=== PATIENT | female | born 1980 | race Caucasian/White ===

== ENCOUNTER 2017-03-09 23:08 | Observation (INO) | payer OTHER ==
[~2017-03-09] VITALS: Ht 177.8 cm; Wt 59.4 kg
--- NOTE | 2017-03-09 23:13 | ED.REPORT ---
HPI-General Illness Date of Service Mar 09, 2017 ED Provider: Dr. Velasco Pt is an otherwise healthy 36 year old who presents to the ED via EMS c/o near- syncope onset this evening. For the past 3 days she has been experiencing intermittent burning left upper chest pain with tingling sensation of the LUE lasting about 15 minutes at a time. This evening she felt very lightheaded and experienced near-syncope prompting a call to medics who found her to be hypotensive with systolic BP in 80s, improving on route. She c/o associated mild SOB, intermittent rapid heart palpitations, mild periumbilical abdominal pain which began this evening, nausea, and mild diarrhea. Pt denies cough, fever , chills, constipation, vomiting, decreased PO intake, or any other symptoms at this time. She rates her chest pain at a 7/10 at its worst. She denies smoking or drinking. Pt also denies asthma or any recent trips or illnesses. She has a family history of bradycardia requiring pacemaker insertion in her father. Her heart rate is normally in the upper 40s. Nursing Notes Stated Complaint: CHEST PAIN Nursing Notes Reviewed: Yes Allergies: Coded Allergies: No Known Allergies (Unverified , 03/09/17) Scheduled Levothyroxine (Synthroid) 50 Mcg Tablet 50 MCG PO DAILY General Time Seen by MD: 23:12 Chief Complaint Other (near syncope) Hx Obtained From: Patient, EMS Arrived By: Ambulance Sudden in Onset?: No Onset Occurred: 1 - 4 hours ago Symptom Duration: Since onset Location: : Chest Quality: Burning Radiation: : Arm left Severity: Current: Mild Severity: Maximum: Moderate Recent Healthcare: No recent doctor visit, No recent hospitalization Similar Sx Previous: No Past Medical History Past Medical History Chronic sinus bradycardia rate upper 40s Hypothyroid Past Surgical History None reported Family History Pt reported a family history of bradycardia Pt reported her father has a pacemaker Smoking History Never Smoker Social History Alcohol Use: Denies alcohol use Ambulatory Status Independent Review of Systems Full Review of Systems Constitutional: Denies: Fever Respiratory: Reports: Shortness of breath, Denies: Non-productive cough Cardiovascular: Reports: Chest pain GI: Reports: Abdominal pain, Diarrhea, Nausea, Denies: Vomiting Neurologic: Reports: Lightheaded, Syncope (near) Complete sys rev & neg: except as marked. Physical Exam Vital Signs Vital Signs Date Time Temp Pulse Resp B/P Pulse Ox O2 Delivery O2 Flow Rate FiO2 8/11/17 23:26 36.5 39 16 106/66 100 Room Air Initial VS: Reviewed, Vital signs abnormal Head / Eyes: Atraumatic, Normocephalic ENT: Mucous membranes moist, Conjunctiva normal Neck: Supple, Full range of motion Abdomen / GI: Soft, Non-tender, No distention Extremities: Vascular intact, Neuro intact Skin: Warm, Dry, No cyanosis Neurologic: Alert, Oriented, Nonfocal Psychiatric: Mood/affect normal, Behavior normal, Normal thought content General/Constitutional: Awake, Alert, No acute distress, Cooperative, Not toxic appearing Respiratory / Chest: Breath sounds NL, Breath sounds = bilat, No respiratory distress Cardiovascular: Regular rhythm, Heart sounds NL, No murmurs, Pulses = bilaterally Heart Rate / Rhythm: Positive: Bradycardia Interpretation & Diagnostics Lab Results Interpretation Result Diagram: 03/09/17231903/09/172319 Test 03/09/17 23:20 03/10/17 00:10 White Blood Count 5.2th/mm3 (3.8-10.1) Red Blood Count 3.95mil/mm3 (3.90-5.20) Hemoglobin 12.3g/dL (12.0-15.6) Hematocrit 37.0% (35.0-46.0) Mean Corpuscular Volume 93.7fL (81-100) Mean Corpuscular Hemoglobin 31.1pg (27.0-35.0) Mean Corpuscular Hemoglobin Concent 33.2% (32.0-37.0) Red Cell Distribution Width 12.2% (12.3-15.4) Platelet Count 338bil/L (150-400) Neutrophils (%) (Auto) 36.3% (40-74) Lymphocytes (%) (Auto) 40.1% (14-46) Monocytes (%) (Auto) 17.6% (4-12) Eosinophils (%) (Auto) 2.7% (0-5) Basophils (%) (Auto) 2.7% (0-3) Band Neutrophils % 1% (1-5) Sodium Level 135mEq/L (134-144) Potassium Level 4.1mEq/L (3.5-5.2) Chloride Level 97mEq/L (97-108) Carbon Dioxide Level 24mmol/L (18-29) Blood Urea Nitrogen 11mg/dL (6-20) Creatinine 0.45mg/dL (0.57-1.00) Estimat Glomerular Filtration Rate 228mL/min (>59) Glucose Level 96mg/dL (60-99) Calcium Level 9.3mg/dL (8.5-10.1) Total Bilirubin 0.2mg/dL (0.0-1.2) Aspartate Amino Transf (AST/SGOT) 25U/L (0-50) Alanine Aminotransferase (ALT/SGPT) 30U/L (0-32) Alkaline Phosphatase 81U/L (25-150) Total Protein 7.5g/dL (6.4-8.4) Albumin 4.6g/dL (3.4-5.0) Hold Purple Top Tube Received (Received) Hold Blue Top Tube Received (Received) Hold Red Top Tube Received (Received) Hold Tilden Top Tube Received (Received) Hold Brown Top Tube Received (Received) ECG Interpretation ECG Interpretation: Sinus bradycardia rate 42 Increased QT interval, QTC [address] segment or T wave changes Time: 00:03 Interpreted by: ED physician X-Ray Chest Interpretation Chest Xray Interpretation: No infiltrate No effusions View: Portable, 1 view Interpretation / Wet Read by: Wet read ED physician NL X-Ray Chest Findings: No infiltrate Re-Eval/Medical Decision Med Decision/Clinical Course This patient presents with near-syncope and continues to have low blood pressure and pulse upon arrival here. Evaluation revealed increased QT interval. The patient responded to atropine however her blood pressure still borderline low with it being in the 90s. Given her family history, abnormal EKG , and symptomatic bradycardia she will be admitted for further evaluation and cardiology consult. The patient is also having some left-sided chest pain she has been having for the past 3 days, she does not have any ischemic changes on EKG and has a normal troponin which rules her out for IA. A partial list of differential diagnoses considered were pulmonary embolus, acute coronary syndrome, dysrhythmia, electrolyte abnormality, dehydration, pneumonia, and dissection. Time of Eval: 00:20 Re-Evaluation/Progress Note: Pt rechecked. Informed pt of plan for admission. HR is a 60 after atropine. Pt. understands andagrees with plan for admission. All questions addressed. Consultation : Referral / Consult Name: Donaldo Ahuja MD Consulted With: Hospitalist Call Returned at: 00:45 Clinical Medical Assistant: Will see patient, Agrees with eval, Agrees with plan, Accepts admit Counseled Regarding: Diagnosis, Lab results, Need for admission Discharge & Departure Primary Impression: Bradycardia Additional Impressions: Near syncope QT prolongation Disposition: ADMITTED TO HOSPITAL Discharge Condition All VS Reviewed: Yes Condition: Stable Scribe Attestation Portions of this note were transcribed by Mary Vargas and Newton Osorio. I, Dr. Velasco personally performed the history, physical exam and medical decision- making; I reviewed and confirmed the accuracy of the information in the transcribed note. Signed by: Ruy Black, 03/09/17 Christen Velasco MD Mar 09, 2017 23:13 Mary Vargas Mar 09, 2017 23:25 NEWTON OSORIO Mar 09, 2017 23:49
[2017-03-09 23:26] VITALS: BP 106/66; PULSE 39; RESP 16; O2SAT 100
[2017-03-09] MEDS ORDERED: 0.9% Sodium Chloride 1,000 ML IV ONE (23:30)
[2017-03-09 23:49] LABS: BASOPHILS % (AUTO) 2.7 % (0-3); EOSINOPHILS % (AUTO) 2.7 % (0-5); MONOCYTES % (AUTO) 17.6 % (4-12); Mean Corpuscular Hemoglobin 31.1 pg (27.0-35.0); Mean Corpuscular Volume 93.7 fL (81-100); NEUTROPHILS % (AUTO) 36.3 % (40-74); Platelet Count 338 bil/L (150-400)
[2017-03-10 00:03] LABS: TROPONIN T 0.01 ug/L (0.0-0.011)
[2017-03-10] MEDS: Atropine 1 mg/10 mL (Code) Syringe IVPUSH PRN ×2 (00:10→00:13)
[2017-03-10 00:14] LABS: Magnesium 2.1 mg/dL (1.6-2.6)
[2017-03-10] MEDS ORDERED: 0.9% Sodium Chloride 1,000 ML IV SCH (00:58)
[2017-03-10] MEDS ORDERED: Ondansetron 2 mg/mL 2 mL Inj IVPUSH PRN (01:00)
[2017-03-10] MEDS: Heparin 5,000 Unit/mL Inj SUBQ SCH ×2 (01:00→09:32)
[2017-03-10] MEDS ORDERED: Atropine 1 mg/10 mL (Code) Syringe IVPUSH PRN (01:00)
[2017-03-10] MEDS ORDERED: Polyethylene Glycol (PEG) 17 Gm Powder PO PRN (01:00)
[2017-03-10] MEDS ORDERED: Alum-Mag Hydrox-Simeth 30 mL Suspension PO PRN (01:00)
[2017-03-10] MEDS ORDERED: Senna-Docusate 8.6-50 mg Tablet PO PRN (01:00)
[2017-03-10 01:12] VITALS: BP 107/76; PULSE 61; RESP 16; O2SAT 100
[2017-03-10 01:39] VITALS: BP 111/77; PULSE 62; RESP 16; O2SAT 100
[2017-03-10] MEDS ORDERED: LEVO50TA83 PO (01:54)
[2017-03-10 02:05] VITALS: BP 98/68; PULSE 57; RESP 14; O2SAT 100
[2017-03-10 02:10] LABS: TROPONIN T 0.01 ug/L (0.0-0.011)
--- NOTE | 2017-03-10 03:35 | PCM.HPMED ---
Subjective Date of Service Mar 10, 2017 Primary Provider: Admitting Physician: Donaldo Ahuja MD Primary Care Physician: Marilyn Attending Physician: Donaldo Ahjua MD Chief Complaint: Near syncope History of Present Illness: Sabiha Jenkins is a 36-year-old woman history of hypothyroidism who experienced an episode of near syncope and has been experiencing intermittent burning left upper chest pain tingling sensation in her left upper extremity for 15 minutes to 30 minutes at a time over the last week and a half "since the days had been hotter than normal." There is no precipitating factors, no correlation to daily activity. She is a [id number] mother with her 2-year-old child. Hypothyroidism was diagnosed when she was and was on 50 g of Levophed or oxygen which she has been taking, so in about a year since that has been evaluated. She endorses being very uncomfortable in warm weather, has a BMI of 18 and states she has always been slender, denies any eating disorders, is currently breast-feeding and as such has not had any menses. She denies any rashes, currently not lightheaded or dizzy, no chest pain, no shortness of breath, no cough, no dysuria or change in frequency, no constipation or diarrhea. She called EMS who found the patient to be hypotensive with a blood pressure in the 80s which improved en route. ER physician states during their exam she had intermittent tachyarrhythmia that unfortunately was not able to be captured on telemetry. She has a family history of bradycardia, her father required pacemaker placement due to bradycardia, does not know the reason for the bradycardia, but received this later in life. She is not a marathon runner. She denies any lethargy, salt cravings, GI complaints, unexplained weight loss. She has not noticed a change in her skin pigmentation. On presentation: 36.5 Celsius, 39, 16, 106/66, 100% on room air, patient was given 1 dose of 0.5 mg atropine and her heart rate increased. Pattern Assembler for unremarkable, chemistries and electrolytes unremarkable, troponin negative. TSH 4.33, magnesium 2.0 EKG showed heart rate 42, sinus rhythm, normal axis, no IVCD, no signs of acute ischemia or infarct, QT 505, QTC 422. Chest x-ray did not show an enlarged mediastinum, cardiac silhouette appears slender but not disproportional. No acute cardiopulmonary process Given her significant family history for symptom at it bradycardia requiring intervention patient was admitted for observation and further evaluation with cardiology consult. Review of Systems: A comprehensive review of systems was conducted with the patient and found to be negative except as above in the history of presenting illness. Allergies Coded Allergies: No Known Allergies (Unverified , 03/09/17) Home Medications Levothyroxine 50 g daily PMH Chronic bradycardia Hypothyroidism Surgical History Denies any previous surgeries. Family History Mother was diagnosed with ovarian cancer at 58 years old, currently in remission. Father bradycardia resulting in permanent pacemaker in his late 50s. Sister: hypothyroidism. 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 Slender but not check cachectic HEENT: Normocephalic, atraumatic, EOMI grossly, moist, neck supple without lymphadenopathy, submandibular salivary glands palpable. Cardiovascular: bradycardic, regular rhythm, no clicks murmurs rubs, peripheral pulses 2/4 equal bilaterally, no palpable bruits, or thrills. Pulmonary: Clear to auscultation bilaterally, no W/R/R. Abdominal: Soft to palpation, bowel sounds present 4, no hepatosplenomegaly. Negative rebound. Extremities: No edema appreciated. No tenderness, asymmetry. Neuro: Neurologically grossly intact, strength is equal bilaterally upper and lower extremities. MSK: Gait is normal, able to move extremities on their own volition, strength 5 out of 5 equal bilaterally to upper and lower extremities. Psychiatric: Oriented to person place time and situation. Appropriate mood and affect. Lab and Diagnostics Result Diagram: 03/09/17 2320 8/11/17 2320 X-Rays, CTs and MRIs Chest Xray Interpretation: No infiltrate No effusions Interpretation / Wet Read by: Wet read ED physician 12-lead ECG EKG showed heart rate 42, sinus rhythm, normal axis, no IVCD, no signs of acute ischemia or infarct, QT 505, QTC 422. Assessment & Plan Rather healthy 36-year-old woman with hypothyroidism presents with near syncopal event following week and a half of intermittent chest discomfort, found to be bradycardic and hypotensive responsive to atropine, admitted for observation and further evaluation. Near syncopal episode, present on admission, active Thida to be Cardiogenic in cause, possible hypovolemia, workup as below Orthostatics in the morning Acute on chronic bradycardia, now symptomatic, present on admission Given family history, possible hereditary cause, further evaluation needed. Place on telemetry Atropine on standby Cardiology consult Electrolytes normal Acute hypotension, chronicity unknown, present on admission, active Orthostatics in the morning Echocardiogram to assess structure and function May consider adrenal insufficiency if cardiac workup is unrevealing. Chronic hypothyroidism, present on admission, active "Heat intolerance" TSH 4.33 Continue home medication levothyroxine 50 g every morning. Patient admitted to observational status with anticipated length of stay less than 1 midnight, based on diagnosis, treatment, and risk of adverse events. DVT prophylaxis subcutaneous heparin GI prophylaxis not indicated Pain management as needed CODE STATUS: Patient is full code, discussed with patient and mother in the room. Pain Evaluation: Adequate Pain Control GI Prophylaxis: Not indicated VTE Prophylaxis: Sub-Q Heparin (Unfractionated) Resuscitation Status: CPR: Attempt Resuscitation Attending Statement The patient was seen and examined together with Dr. Ley on 03/10 and I agree with the history, exam and plan as outlined in the note above. Marcos Buckley DO Mar 10, 2017 03:35 Donaldo Ahuja MD Mar 10, 2017 04:45
--- NOTE | 2017-03-10 05:44 | NUR ---
Admit Patient arrived on unit at 0130, able to transfer self to bed. Oriented to room/ call light, family member at bedside. Instructed to report change in condition, intentional rounding, care continues.
--- NOTE | 2017-03-10 07:15 | NUR ---
HR/status Cont. pulse ox placed on Pt; awaiting tele box. Charge nurse made aware that box has not been placed on pt. HR reading between 45-55. Pt. denies being lightheaded. Reporting mild chest pain, rated 1/10. Able to move in bed and to bathroom independently. Care continues.
[2017-03-10 08:06] LABS: BASOPHILS % (AUTO) 2.1 % (0-3); EOSINOPHILS % (AUTO) 1.2 % (0-5); MONOCYTES % (AUTO) 12.7 % (4-12); Mean Corpuscular Hemoglobin 31.9 pg (27.0-35.0); Mean Corpuscular Volume 95.9 fL (81-100); Platelet Count 286 bil/L (150-400)
--- NOTE | 2017-03-10 08:10 | DRSVH ---
PROCEDURE: X-RAY CHEST ONE VIEW, PORTABLE ([id number]) INDICATIONS: chest pain TECHNIQUE: One view of the chest was acquired. COMPARISON: None. FINDINGS: Surgical changes and devices: None. Lungs and pleura: No pleural effusions or pneumothorax. Lungs are clear. Mediastinum: Mediastinal contours appear normal. Heart size is normal. Bones and chest wall: No suspicious bony lesions. Overlying soft tissues appear unremarkable. IMPRESSION: No radiographic evidence of acute cardiopulmonary pathology. Dictated by: Corona Underwood M.D. on 03/10/2017 at 8:08 Approved by: Corona Underwood M.D. on 03/10/2017 at 8:09
[2017-03-10 08:22] VITALS: BP_SYST 91; BP_SYST 93; BP_DIAS 55; BP_DIAS 57; PULSE 42; RESP 16; O2SAT 100
[2017-03-10] MEDS ORDERED: Sodium Chloride LOK Flush 10 mL Syringe IVFLUSH SCH (08:30)
[2017-03-10 08:33] VITALS: PULSE 55
--- NOTE | 2017-03-10 12:42 | PCM.CHPCAR ---
Consult Subjective Date of service Mar 10, 2017 Date of admit Mar 10, 2017 at 01:05 Provider Requesting Consult Primary Care Physician Primary Care Physician: Marilyn Chief Complaint Lightheadedness and sinus bradycardia History of Present Illness 36-year-old pleasant woman history of hypothyroidism but well treated now admitted with sinus bradycardia and lightheadedness. Patient is a [id number] mother with VKW-1-[id number]-old child and has been breast-feeding her child but not been able to have enough by mouth intake due to her being a picky eater. Patient states that she has had vague constant chest pain, palpitations lasting one or 2 seconds, and fatigue over the past 10 days due to bad weather. She also has shortness of breath but this has improved over the past couple of days with improving weather. Yesterday, patient develops lightheadedness and so was brought to our emergency room. The medics did notice that her heart rate was in the low 40s. In the ER, she was found to have sinus bradycardia with heart rate of 42 BPM. She got IV fluids and has felt better. Today, she feels fatigued and still has her vague chest pressure on her left side but otherwise feels back to her normal self. Patient states that she has always had low resting heart rate and low blood pressure. Patient has had no recent travel history. Patient's father, who is a radiation oncologist in [place], had sick sinus syndrome at the age of 60 and received pacemaker in 2008. He then developed pacemaker induced cardiomyopathy and had an upgrade to SHOE TRIMMER in 2016. Review of Systems Review of Systems Per history of present illness and otherwise unremarkable PMH Past Medical History Hypothyroidism Scheduled Levothyroxine (Synthroid) 50 Mcg Tablet 50 MCG PO DAILY (Reported) Current Inpatient Medications Current Medications Atropine Sulfate 0.5 mg ONCE PRN IVPUSH Last administered on 03/10/17 00:13; Admin Dose 0.5 MG; Start 03/09/17 at 23:30; Stop 03/10/17 at 04:00; Status DC Heparin Sodium (Porcine) 5,000 unit Q8 SUBQ Last administered on 03/10/17 09:32 ; Admin Dose 5,000 UNIT; Start 03/10/17 at 01:00 Sodium Chloride 10 ml 10 ml JHOANA IVFLUSH; Start 03/10/17 at 08:30 Sodium Chloride 1,000 ml @ 80 mls/hr [id number] IV Last administered on 03/10/17 01:59; Admin Dose 80 MLS/HR; Start 03/10/17 at 00:58 Aspirin 81 mg DAILY PO Last administered on 03/10/17 09:32; Admin Dose 81 MG; Start 03/10/17 at 08:30 Al Hydrox/Mg Hydrox/Simethicone 30 ml Q6 PRN PO; Start 03/10/17 at 01:00 Ondansetron HCl 4-8 mg prn nausea Q4 PRN IVPUSH; Start 03/10/17 at 01:00 Senna 1 tablet BID PRN PO; Start 03/10/17 at 01:00 Polyethylene Glycol 17 gm DAILY PRN PO; Start 03/10/17 at 01:00 Acetaminophen 325 mg Q6 PRN PO; Start 03/10/17 at 01:00 Nitroglycerin 0.4 mg Q5MIN PRN SL; Start 03/10/17 at 01:00 Morphine Sulfate 1-5 mg prn pain not relie... 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 Hx Alcohol Use: NoHx Substance Use: NoHx Tobacco Use: No Smoking Status: Never Smoker Living Arrangement: with Family Exam Vital Signs Vital Sign - Last Date Time Temp Pulse Resp B/P Pulse Ox O2 Delivery O2 Flow Rate FiO2 03/10/17 08:22 37.1 42 16 93/55 100 Room Air 91/55 93/57 Intake and Output 03/09/17 03/09/17 03/10/17 Cumulative From/Thru 14:59 22:59 06:59 03/09/17 23:26 - 03/10/17 06:54 Intake Total 1200 ml 1200 ml Balance 1200 ml 1200 ml Intake Oral 200 ml 200 ml IV Total 1000 ml 1000 ml Objective General appearance: No apparent distress, well-nourished, pleasant, cooperative HEET: Normocephalic atraumatic, no scleral icterus, tongue midline, mucous membranes moist Neck: supple Cardiovascular: RRR, normal S1 and normal S2, no murmurs/ rubs/gallops, PMI nondisplaced, no JVD, no peripheral edema Respiratory: Good aeration, CTAB Abdomen: Soft, nontender, obese, + bowel sounds Neuro: Alert, no facial droop, tongue midline, no gross motor deficits Psych: appropriate affect Lab and Diagnostics Labs TSH 4.3 Result Diagram: 03/10/17 0711 03/10/17 0500 X-Rays, CTs and MRIs Echo today: 1) Normal left ventricular thickness, size, wall motion, and systolic function ( EF 60-65%). 2) Normal right ventricular size and function. 3) No significant valvular abnormalities. 4) No prior Echo available for comparison. 12-lead ECG ECG on admission shows sinus bradycardia (heart rate 42 BPM) with low voltage Assessment & Plan Assessment 36-year-old pleasant woman history of hypothyroidism but well treated now admitted with sinus bradycardia and lightheadedness. # Lightheadedness: Suspected etiology is dehydration. Patient does have history of chronic sinus bradycardia and has been asymptomatic from it in the past. I spent significant time as the patient and her family about getting adequate hydration as below. Drink isotonic fluids such as gatorade, powerade, or simply add [place], salt, and sugar to water. Alcoholic and caffeinated beverages, such as coffee, teas, and nick, are not recommended for optimal hydration. # Sinus Bradycardia: Structurally normal heart. Suspect this is due to her good overall condition but patient does have her father having sick sinus syndrome and needing pacemaker at the age of 60. Patient was noted to have heart rate in the 30s on the pulse oximeter but reproduction order processor was not placed overnight as it was not available. Patient has been on telemetry since 8 :30 AM today morning and has had mild sinus bradycardia without any significant pauses. Plan: - Cardiology consult as outpatient for Zio patch X2 weeks and treadmill ECG stress test # Chest pain: Etiology is noncardiac based on the story. Stress test as above. # Fatigue: Suspect fatigue is due to inability to get sleep overnight in the hospital. Thank you for the interesting consultation. Cardiology will sign off at this time. Pain Evaluation: Adequate Pain Control VTE Prophylaxis: Sub-Q Heparin (Unfractionated) Resuscitation Status: CPR: Attempt Resuscitation Salvador Nogueira MD Mar 10, 2017 12:42
--- NOTE | 2017-03-10 12:47 | DRSVH ---
[facility] [address] [place] [address] Echocardiogram Report Name: VIKY HELTON LStudy Date: 03/10/2017 Height: 70 in Hospital Exam Location: [facility] Weight: 131 lb Gender: Female BSA: 1.7 m2 : 1980 Age: 36 yrs BP: 98/68 mmHg Reason For Study: Bradycardia Ordering Physician: Performed By: [facility] Interpretation Summary 1) Normal left ventricular thickness, size, wall motion, and systolic function (EF 60-65%). 2) Normal right ventricular size and function. 3) No significant valvular abnormalities. 4) No prior Echo available for comparison. Procedure: A two-dimensional transthoracic echocardiogram with color flow and Doppler was performed. The study quality was technically good. There is no prior echocardiogram noted for this patient. The heart rate ranged between 49-50 bpm during the study. Left Ventricle: The left ventricle is normal in size, wall thickness, and systolic function without any focal wall motion abnormalities. The ejection fraction is estimated to be 60-65%. Assessment of diastolic parameters indicates normal left ventricular diastolic function and normal filling pressures. Right Ventricle: The right ventricle is normal size. The right ventricular systolic function is normal. Atria: The left atrium is mildly dilated. Right atrial size is normal. The interatrial septum is intact with no evidence for an atrial septal defect. Mitral Valve: The mitral valve is normal in structure and function. There is no mitral regurgitation noted. Aortic Valve: The aortic valve is trileaflet. The aortic valve opens well. There is no aortic valve stenosis. No aortic regurgitation is present. Tricuspid Valve: The tricuspid valve is normal in structure and function. There is trace tricuspid regurgitation. The right ventricular systolic pressure is estimated at 22 mmHg assuming a right atrial pressure of 3 mm Hg. Pulmonic Valve: The pulmonic valve is normal in structure and function. There is no pulmonic valvular regurgitation. Great Vessels: The aortic root is normal size. The dimensions of the ascending aorta are normal. The IVC is of normal diameter and collapses greater than 50% with a sniff. This suggests a low right atrial pressure of 3 mm Hg. Pericardium/ Pleura There is no pericardial effusion. There is no pleural effusion. MMode/2D Measurements & Calculations LVIDd: 5.1 cm LA dimension: 3.6 cm RA long axis Ao root diam LVIDs: 2.8 cm FS: 44.2 % LA A2 area: 25.4 cm RA area Aortic Jxn: 2.6 cm IVSd: 0.77 cm LA A4 area: 17.1 cm asc Aorta Diam LVPWd: 0.61 cm LA length (vol) : 15.9 cm RA vol Ao Arch Diam (Prox LA vol: 81.3 ml : 42.4 ml Trans): 2.4 cm LA vol index RA : 24.3 mm/ RVDd major IVC diam: 2.4 cm : 7.0 cm LV mckeon. diameter/BSA LV sys. diameter/BSA RVD1 (basal) RVD2 (mid): 3.5 cm (cm/m^2): 2.9 (cm/m^2): 1.6 Doppler Measurements & Calculations LVOT Max Donell MV E max donell MV E/A: 2.6 TR max donell : 108.7 cm/sec : 70.4 cm/sec Med Peak E' Donell : 216.2 cm/sec MV A max donell TR max PG : 27.4 cm/sec E/E' med: 5.0 : 18.7 mmHg MV P1/2t: 67.8 msec Lat Peak E' Donell PA V2 max : 77.8 cm/sec E/E' lat: 3.6 PA mean PG E/e' average: 4.3 PA Accel Time : 0.23 sec MV dec time MV P1/2t max donell LV V1 max PG PA V2 mean : 0.23 sec : 55.6 cm/sec MVA(P1/2t): 3.2 cm2 LV V1 VTI: 25.0 cm Reading Physician:12:47 PM
--- NOTE | 2017-03-10 13:31 | PCM.DIMED ---
Discharge Instructions Date of Service Mar 10, 2017 Dates of Hospitalization Mar 10, 2017 at 01:05 Discharge Diagnosis Discharge Diagnosis presyncopal episode paresthesia Diet Discharge Diet: No restrictions Activity Discharge Activity: No restrictions Patient Instructions Patient Instructions You were hospitalized with unusual sensation and lightheadedness and found to have low heart rate. You were monitored in the hospital. It's believed to be from dehydration. Your cardiac workups didn't reveal any abnormalities. Please follow up with for further cardiac evaluation. Please continue enough hydration. If your symptoms recur, more frequently, please return to the hospital. Follow-up Provider: Salvador Nogueira MD Follow-up with PCP in: 1 week Prateek Hernández MD Mar 10, 2017 13:31
--- NOTE | 2017-03-10 15:40 | NUR ---
Discharge Pt. given discharge instructions. Pt. to f/u with cardiology in 1 week post discharge; pt. given card with contact phone numbers to set up own appt. time. No new medications to take at home, no prescriptions given at this time. Saline lock discontinued. Care notes given on near syncope and bradycardia as well as info on zio patch. Pt discharged with mother, who will transport pt. home. Approx. discharge time 1445.
--- NOTE | 2017-03-12 15:12 | PCM.DC.MED ---
Discharge Summary Date of Service Mar 10, 2017 Dates of Hospitalization Date of Hospital Admission Mar 10, 2017 at 01:05 Date of Discharge: Mar 10, 2017 Providers: Admitting Physician: Donaldo Ahuja MD Primary Care Physician: Marilyn Attending Physician: Prateek Hernández MD Diagnosis at Time of Discharge Diagnosis at Time of Discharge presyncopal episode paresthesia Consultations cardiology Procedures XRay, CTs & MRIs Chest Xray Interpretation: No infiltrate No effusions Interpretation / Wet Read by: Wet read ED physician ECG 12 Lead EKG showed heart rate 42, sinus rhythm, normal axis, no IVCD, no signs of acute ischemia or infarct, QT 505, QTC 422. Cardiac Echo Impression Echocardiogram Report Name: VIKY HELTON LStudy Date: 03/10/2017 Height: 70 in Hospital Exam Location: [facility] Weight: 131 lb Gender: Female BSA: 1.7 m2 : 1980 Age: 36 yrs BP: 98/68 mmHg Reason For Study: Bradycardia Ordering Physician: Performed By: Emilia [facility]addellCl[facility]IST [facility] Interpretation Summary 1) Normal left ventricular thickness, size, wall motion, and systolic function (EF 60-65%). 2) Normal right ventricular size and function. 3) No significant valvular abnormalities. 4) No prior Echo available for comparison. Brief History 36-year-old pleasant woman history of hypothyroidism but well treated now admitted with sinus bradycardia and lightheadedness. Patient is a [id number] mother with [id number]-old child and has been breast-feeding her child but not been able to have enough by mouth intake due to her being a picky eater. Patient states that she has had vague constant chest pain, palpitations lasting one or 2 seconds, and fatigue over the past 10 days due to bad weather. She also has shortness of breath but this has improved over the past couple of days with improving weather. Yesterday, patient develops lightheadedness and so was brought to our emergency room. The medics did notice that her heart rate was in the low 40s. In the ER, she was found to have sinus bradycardia with heart rate of 42 BPM. She got IV fluids and has felt better. Today, she feels fatigued and still has her vague chest pressure on her left side but otherwise feels back to her normal self. Patient states that she has always had low resting heart rate and low blood pressure. Patient has had no recent travel history. Patient's father, who is a radiation oncologist in [place], had sick sinus syndrome at the age of 60 and received pacemaker in 2008. He then developed pacemaker induced cardiomyopathy and had an upgrade to MAINTE[employer]PER[employer] in 2016. Hospital Course Rather healthy 36-year-old woman with hypothyroidism presents with near syncopal event following week and a half of intermittent chest discomfort, found to be bradycardic and hypotensive responsive to atropine, admitted for observation and further evaluation. brief hospital course, pt was monitored for one day given FHx of bradycardia, however, TTE was essential unremarkable. Telemetry showed no event. Patient was seen by , it was thought to be benign etiologies, dehydration causing probable orthostasis. Patient received enough IVF, remained asymptomatic, deemed safe for d/c. Exam Vital Signs (Last) Date Time Temp Pulse Resp B/P Pulse Ox O2 Delivery O2 Flow Rate FiO2 03/10/17 08:33 55 03/10/17 08:22 37.1 16 93/55 100 Room Air 91/55 93/57 Exam pt was examined on the day of d/c Test 03/09/17 23:20 03/10/17 00:10 03/10/17 01:36 03/10/17 05:00 Band Neutrophils % 1% (1-5) Total Bilirubin 0.2mg/dL (0.0-1.2) Aspartate Amino Transf (AST/SGOT) 25U/L (0-50) Alanine Aminotransferase (ALT/SGPT) 30U/L (0-32) Alkaline Phosphatase 81U/L (25-150) Total Protein 7.5g/dL (6.4-8.4) Albumin 4.6g/dL (3.4-5.0) Hold Purple Top Tube Received (Received) Hold Blue Top Tube Received (Received) Hold Red Top Tube Received (Received) Hold [place] Top Tube Received (Received) Hold Brown Top Tube Received (Received) Hemoglobin A1c 5.0% (4.8-5.6) Magnesium Level 2.0mg/dL (1.6-2.6) Thyroid Stimulating Hormone (TSH) 4.330uIU/mL (0.450-4.500) Sodium Level 141mEq/L (134-144) Potassium Level 4.3mEq/L (3.5-5.2) Chloride Level 109mEq/L (97-108) Carbon Dioxide Level 20mmol/L (18-29) Blood Urea Nitrogen 9mg/dL (6-20) Creatinine 0.38mg/dL (0.57-1.00) Estimat Glomerular Filtration Rate 278mL/min (>59) Glucose Level 74mg/dL (60-99) Calcium Level 8.5mg/dL (8.5-10.1) Triglycerides Level 52mg/dL (0-149) Cholesterol Level 154mg/dL (100-199) LDL Cholesterol, Calculated 95.600mg/dL (0-99) VLDL Cholesterol 10.400mg/dL HDL Cholesterol 48mg/dL (>39) Cholesterol/HDL Ratio 3.21 (0.0-4.4) Test 03/10/17 07:11 White Blood Count 4.3th/mm3 (3.8-10.1) Red Blood Count 3.64mil/mm3 (3.90-5.20) Hemoglobin 11.6g/dL (12.0-15.6) Hematocrit 34.9% (35.0-46.0) Mean Corpuscular Volume 95.9fL (81-100) Mean Corpuscular Hemoglobin 31.9pg (27.0-35.0) Mean Corpuscular Hemoglobin Concent 33.2% (32.0-37.0) Red Cell Distribution Width 12.6% (12.3-15.4) Platelet Count 286bil/L (150-400) Neutrophils (%) (Auto) 55.0% (40-74) Lymphocytes (%) (Auto) 29.0% (14-46) Monocytes (%) (Auto) 12.7% (4-12) Eosinophils (%) (Auto) 1.2% (0-5) Basophils (%) (Auto) 2.1% (0-3) Troponin T 0.010ug/L (0.0-0.011) Free Thyroxine 1.18ng/dL (0.82-1.77) Discharge Medications Discharge Medications Levothyroxine (Synthroid) 50 Mcg Tablet 50 MCG PO DAILY (Reported) Followup Plan Disposition: home Discharge Diet: No restrictions Discharge Activity: No restrictions Patient Instructions You were hospitalized with unusual sensation and lightheadedness and found to have low heart rate. You were monitored in the hospital. It's believed to be from dehydration. Your cardiac workups didn't reveal any abnormalities. Please follow up with for further cardiac evaluation. Please continue enough hydration. If your symptoms recur, more frequently, please return to the hospital. Follow-up Provider: Salvador Nogueira MD Follow-up with PCP in: 1 week Time spent 65min Prateek Hernández MD Mar 12, 2017 15:12
== END 2017-03-10 15:15 | disposition home or self-care (01) ==
LOC: EDBD 23:08 → SED 23:08 → OSC 03-10 01:05
PROVIDERS: ADMIT Hospitalist; ATTEND Hospitalist
DX: R55 Syncope and collapse (principal); R20.9 Unspecified disturbances of skin sensation; R00.1 Bradycardia, unspecified; I95.89 Other hypotension; E03.9 Hypothyroidism, unspecified; I45.81 Long QT syndrome; R07.9 Chest pain, unspecified; Z79.82 Long term (current) use of aspirin
CPT/HCPCS: 36415; 71010; 80048; 80053; 80061; 83036; 83735; 84439; 84443; 84484; 85025; 93005; 96361; 96372; 96374; 99285; C8929; G0378; J0461; J1644; J7030